=== PATIENT | male | born 1950 | race Caucasian/White ===

== ENCOUNTER → 2016-09-24 | Day surgery (SDC) | payer MEDICARE ==
[~2016-09-24] MED LIST: CARV12.5 PO; CHOL10003 PO; HYDROmorphone 2 MG/ML VIAL IV PRN; IV RINGERS,LACTATED 1000ML 1,000 ML IV SCH; LIDOCAINE 1% 1 ML SYRINGE. ID PRN; LISI10TA2 PO; LITH300T3 PO; MORPHINE SULFATE 2 MG/ML DISP.SYRIN. IV PRN; ONDANSETRON PF 4 MG/2 ML VIAL. IV PRN; PROCHLORPERAZINE 10 MG/2 ML VIAL. IV PRN; PROPOFOL 40 ML IV ONE; SPIR25TA3 PO; fentaNYL PF VIAL 100 MCG/2 ML VIAL IV PRN
--- NOTE | 2016-09-24 09:12 | PDOC1 ---
HISTORY & PHYSICAL H&P Tirso Brewster [id number] 1950 09/17/2016 02:30 PM 02/17 [place] [employer] [facility], [facility] OUR PATIENTS COME FIRST [address] [place] [address] Ph. [phone] Patient: Tirso Brewster Date of : 1950 Date: 09/17/2016 2:30 PM Visit Type: Consult This 66 year old male presents for H/o colorectal polyp. History of Present Illness: 1. H/o colorectal polyp Prior screening: colonoscopy. Risk Factors: h/o colon polyp. Pertinent negatives include abdominal pain, change in bowel habits, change in stool caliber, constipation, decreased appetite, diarrhea, melena, nausea, rectal bleeding, vomiting, weight gain and weight loss. Additional information: No family history of colon cancer, No family history of Crohn's/colitis, No NSAID/ ASA use and Last colonoscopy in 2010. INTAKE COMMENTS: Intake Comments: Nurse Note: the pt is here today to schedule a colonoscopy due to a hx of colon polyps in 2010. PROBLEM LIST: Problem Description Onset Date Bipolar disorder 10/26/2012 Benign essential hypertension 10/26/2012 Hyperplasia of prostate 10/26/2012 Unilateral recurrent inguinal hernia 10/26/2012 Inguinal hernia 11/01/2014 PAST MEDICAL/SURGICAL HISTORY (Detailed) Disease/disorder Onset Date Management Date Comments knee replacement 2008 Knee surgery 1985 abdominal hernia repair 1985 tonsillectomy Atrial fibrillation Bipolar I Cardiac arrythmia AICD placement Colonic polyp-hyperplastic colonoscopy with polypectomy 02/05/2011 Colonic polyps colonoscopy with polypectomy 09/22/2004 Colonic polyps-hyperplastic colonoscopy with polypectomy 10/30/2010 nnonischemic cardiomyopathy DIAGNOSTICS HISTORY: Test Ordered Interpretation Result completed COLONOSCOPY AND BIOPSY 11/22/2009 BX: Hyperplastic polyp-KR 02/08/2011 Test Ordered Ordering Comments Modifier COLONOSCOPY AND BIOPSY 11/22/2009 Medications (Active): Started Medication Directions Instruction Stopped Coreg 12.5 mg tablet take 1 tablet by oral route 2 times every day with food 04/10/2010 lisinopril 10 mg Tab take 1 tablet (10MG) by oral route every day 11/22/2009 lithium carbonate 300 mg Tab take 1 tablet (300MG) by ORAL route [address] Tirso Turpin olanzapine 2.5 mg tablet take 1 tablet by oral route every day spironolactone 25 mg tablet take 1 tablet (25MG) by oral route every day 09/05/2016 Vitamin D3 2,000 unit tablet one daily Allergies: Ingredient Reaction Medication Name Comment NO KNOWN DRUG ALLERGIES REVIEW OF SYSTEMS System Neg/Pos Details Constitutional Negative Chills, fever, malaise, weight gain and weight loss. ENMT Negative Sore throat. Eyes Negative Double vision. Respiratory Negative Dyspnea and wheezing. Cardio Negative Chest pain and irregular heartbeat/palpitations. GI Positive See HPI. GI Negative Abdominal pain, change in bowel habits, change in stool caliber, constipation, decreased appetite, diarrhea, melena, nausea, see HPI, rectal bleeding and vomiting. Negative Dysuria and hematuria. Endocrine Negative Cold intolerance and heat intolerance. Psych Negative Anxiety. Integumentary Negative Hives and rash. MS Negative Joint pain. Alexis/Lymph Negative Easy bleeding and easy bruising. Allergic/Immuno Negative Animals at home and food allergies. VITAL SIGNS Time BP mm/Hg Pulse /min Resp /min Temp F Ht ft Ht in Ht cm Wt lb Wt kg BMI kg/ m2 BSA m2 O2 Sat% 2:37 PM 122/82 78 98.1 5.0 8.00 172.72 178.40 80.921 27.13 94 Time Measured by 2:37 PM Vandana Santana PHYSICAL EXAM: Exam Findings Details Constitutional Normal Well developed. Eyes Normal Conjunctiva - Right: Normal, Left: Normal. Sclera - Right: Normal, Left: Normal. Nasopharynx Normal Lips/teeth/gums - Normal. Neck Exam Normal Inspection - Normal. Thyroid gland - Normal. Respiratory Normal Inspection - Normal. Auscultation - Normal. Cardiovascular Normal Regular rate and rhythm. No murmurs, gallops, or rubs. Vascular Normal Pulses - Carotids: Normal, Femoral: Normal, Dorsalis pedis: Normal. Abdomen Normal Inspection - Normal. Anterior palpation - No guarding. No abdominal tenderness. No hepatic enlargement. No splenic enlargement. No hernia. No ascites. Skin Normal Inspection - Normal. Extremity Normal No edema. Psychiatric * Oriented to time, place, person and situation. Psychiatric Normal Appropriate mood and effect. Assessment/Plan # Detail Type Description 1. Assessment History of colon polyps (Z86.010). Patient Plan [place] [facility] [place] Further diagnostic evaluations ordered today include(s) Colonoscopy to be performed today. He is to schedule a follow-up visit with Ha Moreno MD upon completion of work-up Electronically signed by: Ha Moreno MD 09/17/2016 03:35 PM Document generated by: Ha Moreno 09/17/2016 03:35 PM Martín Gómez MD, Family Practice; Mandeep Vanegas MD Internal Medicine; Tracey Hanna MD, Internal Medicine; Fantasma Moreno MD Internal Medicine; Ha Moreno MD, Gastroenterology; Ronald Milan MD, Rheumatology, S. Jeff Mares, Physical Medicine/Rehab J. Angelica STEPHENN ------ 09/24/16 Patient seen and examined. No change in H&P. HA MORENO MD Sep 24, 2016 09:12
[2016-09-24 09:19] VITALS: BP 107/57
--- NOTE | 2016-09-25 12:38 | PATHOLOGY ---
PATHOLOGY REPORT * * * * * * * * FINAL DIAGNOSIS: A. Colon biopsy, sigmoid colon polyp: - Tubular adenoma. B. Colon biopsy, transverse colon polyp: - Hyperplastic polyp. COMMENT: There is no high-grade dysplasia or evidence of malignancy. (JPM:mgr; 09/25/2016) REPORT ELECTRONICALLY SIGNED BY: Zay Junior M.D. DATE/TIME: 09/25/2016 12:37 * * * * * * * * GROSS PATHOLOGY: A. Received in formalin labeled "Al Brewster, sigmoid colon polyp," is a segment of boyd soft tissue measuring 0.4 cm in maximum dimension. The specimen is submitted entirely in cassette A1. B. Received in formalin labeled "transverse colon polyp biopsy," is a segment of boyd soft tissue measuring 0.3 cm in maximum dimension. The specimen is submitted entirely in cassette B1. (JPM; 09/24/16) INITIAL CPT CODE(S): A; 15511 B; 06295 Professional services [place] [address] Technical services performed by [facility] at [address] [place] [address] [address] [address]. SPECIMEN(S) RECEIVED: A.Sigmoid colon polyp B.Transverse colon polyp CLINICAL HISTORY: History of polyps PATIENT: AL BREWSTER /AGE: 6 1950 (Age: 66) PATIENT #: [id number] ALT CASE #: SPECIMEN COLLECTION DATE: 09/24/2016 SPECIMEN RECEIVED DATE: 09/24/2016 [facility] - [address] [place] [address] - PHONE: [phone] * * * END OF REPORT * * *
== END | disposition home or self-care (01) ==
LOC: ENDOS 06:36
PROVIDERS: ATTEND Internal Medicine Gastroenterology
DX: Z87.19 Personal history of other diseases of the digestive system (principal); D12.3 Benign neoplasm of transverse colon; K63.5 Polyp of colon; D12.5 Benign neoplasm of sigmoid colon; I48.91 Unspecified atrial fibrillation; I10 Essential (primary) hypertension; M19.90 Unspecified osteoarthritis, unspecified site; Z87.39 Personal history of other diseases of the musculoskeletal system and connective tissue
CPT/HCPCS: 45380; 45385; J2704

== ENCOUNTER → 2017-02-24 | Outpatient (CLI) | payer MEDICARE | END | disposition home or self-care (01) | LOC: KCIC 12:17 | DX: S82.62XA Displaced fracture of lateral malleolus of left fibula, initial encounter for closed fracture (principal); X58.XXXA Exposure to other specified factors, initial encounter; Y93.89 Activity, other specified; Y92.89 Other specified places as the place of occurrence of the external cause; Y99.8 Other external cause status | CPT/HCPCS: 73610 ==